=== PATIENT | male | born 1985 | race Caucasian/White ===

== ENCOUNTER 2019-06-11 18:07 | Emergency (ER) | payer SELFPAY ==
--- NOTE | 2019-06-11 18:45 | EDM.PDOC ---
ED HPI GENERAL MEDICAL PROBLEM - General Chief Complaint: Chest Pain Stated Complaint: CHEST PAIN Time Seen by Provider: 06/11/19 18:08 Source of Information: Reports: Patient History Limitations: Reports: No Limitations - History of Present Illness INITIAL COMMENTS - FREE TEXT/NARRATIVE: HISTORY AND PHYSICAL: History of present illness: Patient is a 33-year-old male presents to the ED today with concern of tingling in his hands and feet and chest discomfort 2 days. Patient states that he has had this chest discomfort off-and-on since he had an accident involving his ribs approximately 10 years ago. Patient states he got concerned because his mother has recently had a heart attack and is in her late 50s. Patient denies any health history or any other symptoms or concerns. Patient states he has not taken anything for her symptoms. Patient denies fever, chills, chest pain, shortness of breath, or cough. Denies headache, neck stiff ness, change in vision, syncope, or near syncope. Denies nausea, vomiting, abdominal pain, diarrhea, constipation, or dysuria. Has not noted any blood in urine or stool. Patient has been eating and drinking appropriately. Review of systems: As per history of present illness and below otherwise all systems reviewed and negative. Past medical history: As per history of present illness and as reviewed below otherwise noncontributory. Surgical history: As per history of present illness and as reviewed below otherwise noncontributory. Social history: See social history for further information Family history: As per history of present illness and as reviewed below otherwise noncontributory. Physical exam: General: Patient is alert, oriented, and in no acute distress. Patient sitting comfortably on exam table, mildly anxious appearing. HEENT: Atraumatic, normocephalic, pupils equal and reactive bilaterally, negative for conjunctival pallor or scleral icterus, mucous membranes moist, TMs normal bilaterally, throat clear, neck supple, nontender, trachea midline. No drooling or trismus noted. No meningeal signs. No hot potato voice noted. Lungs: Clear to auscultation, breath sounds equal bilaterally, chest nontender. Heart: S1S2, regular rate and rhythm without overt murmur Abdomen: Soft, nondistended, nontender. Negative for masses or hepatosplenomegaly. Negative for costovertebral tenderness. Pelvis: Stable nontender. Genitourinary: Deferred. Rectal: Deferred. Skin: Intact, warm, dry. No lesions or rashes noted. Extremities: Atraumatic, negative for cords or calf pain. Neurovascular unremarkable. Neuro: Awake, alert, oriented. Cranial nerves II through XII unremarkable. Cerebellum unremarkable. Motor and sensory unremarkable throughout. Exam nonfocal. Notes: EKG reviewed with Dr. Verdugo Patient expresses resolution of symptoms throughout stay in ED. Admission for observation was offered to patient but she declines at this time. All risks versus benefits discussed with patient and expresses understanding. Voices understanding and is agreeable to plan of care. Denies any further questions or concerns at this time. Diagnostics: CBC, CMP, UA, EKG, chest x-ray, troponin, lipase Therapeutics: Aspirin Prescription: None Impression: Chest pain Plan: 1. You can alternate ibuprofen and Tylenol as directed for pain and discomfort. 2. Follow-up with her primary care provider as discussed. Return to the ED as needed and as discussed. Definitive disposition and diagnosis as appropriate pending reevaluation and review of above. Chest Pain Score (Numeric/FACES): 8 - Related Data Allergies Allergy/AdvReac Type Severity Reaction Status Date / Time No Known Allergies Allergy Verified 06/11/19 18:10 Home Meds: Home Meds Pantoprazole Sodium [Protonix] 20 mg PO DAILY 07/15/16 [History] Past Medical History Gastrointestinal History: Reports: GERD - Infectious Disease History Infectious Disease History: Reports: Chicken Pox Social & Family History - Family History Family Medical History: Noncontributory - Tobacco Use Smoking Status *Q: Never Smoker Second Hand Smoke Exposure: No - Caffeine Use Caffeine Use: Reports: Coffee - Recreational Drug Use Recreational Drug Use: No ED ROS GENERAL - Review of Systems Review Of Systems: ROS reveals no pertinent complaints other than HPI. ED EXAM, GENERAL - Physical Exam Exam: See Below (See dictation) Course - Vital Signs Last Recorded V/S: Last Vital Signs Temp 36.4 C 06/11/19 18:11 Pulse 73 06/11/19 20:21 Resp 14 06/11/19 20:21 BP 133/96 H 06/11/19 20:21 Pulse Ox 98 06/11/19 20:21 - Orders/Labs/Meds Orders: Active Orders 24 hr Category Date Time Status EKG Documentation Completion [RC] STAT Care 09/04/19 18:09 Active UA RFX DOT AND CULT IF INDIC [URIN] Stat Lab 06/11/19 18:20 Ordered Labs: Laboratory Tests 06/11/19 06/11/19 06/11/19 Range/Units 18:20 18:20 18:20 WBC 11.34 H (4.0-11.0) K/uL RBC 5.16 (4.50-5.90) M/uL Hgb 16.5 (13.0-17.0) g/dL Hct 47.6 (38.0-50.0) % MCV 92.2 (80.0-98.0) fL MCH 32.0 (27.0-32.0) pg MCHC 34.7 (31.0-37.0) g/dL RDW Std Deviation 46.3 (28.0-62.0) fl RDW Coeff of Bridger 14 (11.0-15.0) % Plt Count 297 (150-400) K/uL MPV 9.60 (7.40-12.00) fL Neut % (Auto) 57.8 (48.0-80.0) % Lymph % (Auto) 27.9 (16.0-40.0) % Bates % (Auto) 9.9 (0.0-15.0) % Eos % (Auto) 3.5 (0.0-7.0) % Baso % (Auto) 0.9 (0.0-1.5) % Neut # (Auto) 6.6 H (1.4-5.7) K/uL Lymph # (Auto) 3.2 H (0.6-2.4) K/uL Bates # (Auto) 1.1 H (0.0-0.8) K/uL Eos # (Auto) 0.4 (0.0-0.7) K/uL Baso # (Auto) 0.1 (0.0-0.1) K/uL Nucleated RBC % 0.0 /100WBC Nucleated RBCs # 0 K/uL Sodium 140 (136-148) mmol/L Potassium 3.4 L (3.5-5.1) mmol/L Chloride 100 (98-107) mmol/L Carbon Dioxide 19.7 L (21.0-32.0) mmol/L BUN 8 (7.0-18.0) mg/dL Creatinine 0.9 (0.8-1.3) mg/dL Est Cr Clr Drug Dosing 129.33 mL/min Estimated GFR (MDRD) > 60.0 ml/min Glucose 88 (74-106) mg/dL Calcium 9.5 (8.5-10.1) mg/dL Total Bilirubin 1.3 H (0.2-1.0) mg/dL AST 20 (15-37) IU/L ALT 34 (14-63) IU/L Alkaline Phosphatase 113 (46-116) U/L Troponin I < 0.050 (0.000-0.056) ng/mL Total Protein 7.9 (6.4-8.2) g/dL Albumin 4.1 (3.4-5.0) g/dL Globulin 3.8 (2.6-4.0) g/dL Albumin/Globulin Ratio 1.1 (0.9-1.6) Lipase 91 (73-393) U/L Meds: Medications Discontinued Medications Generic Name Dose Route Start Last Admin Trade Name Tristan PRN Reason Stop Dose Admin Aspirin 324 mg 06/11/19 18:44 06/11/19 18:54 Aspirin PO 06/11/19 18:45 324 mg ONETIME ONE Administration Departure - Departure Time of Disposition: 20:27 Disposition: Home, Self-Care 01 Clinical Impression: Chest pain Qualifiers: Chest pain type: unspecified Qualified Code(s): R07.9 - Chest pain, unspecified - Discharge Information Referrals: PCP,Unknown [Primary Care Provider] - Forms: ED Department Discharge Additional Instructions: The following information is given to patients seen in the emergency department who are being discharged to home. This information is to outline your options for follow-up care. We provide all patients seen in our emergency department with a follow-up referral. The need for follow-up, as well as the timing and circumstances, are variable depending upon the specifics of your emergency department visit. If you don't have a primary care physician on staff, we will provide you with a referral. We always advise you to contact your personal physician following an emergency department visit to inform them of the circumstance of the visit and for follow-up with them and/or the need for any referrals to a consulting specialist. The emergency department will also refer you to a specialist when appropriate. This referral assures that you have the opportunity for follow-up care with a specialist. All of these measure are taken in an effort to provide you with optimal care, which includes your follow-up. Under all circumstances we always encourage you to contact your private physician who remains a resource for coordinating your care. When calling for follow-up care, please make the office aware that this follow-up is from your recent emergency room visit. If for any reason you are refused follow-up, please contact the [facility] at and asked to speak to the emergency department charge nurse. [facility] [address], [place] [address] [facility] [address] [place] [id number] 1. Take medication as prescribed. You can alternate ibuprofen and Tylenol as directed for pain and discomfort. 2. Follow-up with a primary care provider as discussed. Return to the ED as needed and as discussed. - My Orders Last 24 Hours: My Active Orders 06/11/19 18:09 EKG Documentation Completion [RC] STAT 06/11/19 18:20 UA RFX DOT AND CULT IF INDIC [URIN] Stat - Assessment/Plan Last 24 Hours: My Active Orders 06/11/19 18:09 EKG Documentation Completion [RC] STAT 06/11/19 18:20 UA RFX DOT AND CULT IF INDIC [URIN] Stat
[2019-06-11] MEDS: Aspirin 81 MG Tab.Chew PO ONE (18:54)
--- NOTE | 2019-06-11 19:09 | CR ---
INDICATION: Chest pain. TECHNIQUE: AP portable chest x-ray. FINDINGS: Heart size normal. Lungs clear. Chest otherwise negative without acute disease. Dictated by Diogenes Hart MD @ Jun 11 2019 7:06PM Signed by Dr. Diogenes Hart @ Jun 11 2019 7:07PM
[2019-06-11 20:13] LABS: BLOOD UREA NITROGEN,BUN 8 mg/dL (7.0-18.0); CARBON DIOXIDE,CO2 19.7 mmol/L (21.0-32.0); CHLORIDE,CL 100 mmol/L (98-107); GLUCOSE RANDOM 88 mg/dL (74-106); POTASSIUM,K 3.4 mmol/L (3.5-5.1); SODIUM,NA 140 mmol/L (136-148)
[2019-06-11 20:49] VITALS: BP 148/94
== END 2019-06-11 20:47 | disposition home or self-care (01) ==
LOC: MW.ED 18:07
DX: R07.9 Chest pain, unspecified (principal); K21.9 Gastro-esophageal reflux disease without esophagitis; Z79.899 Other long term (current) drug therapy
CPT/HCPCS: 36415; 71045; 80053; 83690; 84484; 85025; 93005; 99285; A9270

== ENCOUNTER 2020-11-12 07:02 | Day surgery (SDC) | payer BC ==
[~2020-11-12 07:02] MED LIST: Lactated Ringers 1,000 ML IV SCH; Midazolam 1 MG/ML 2 ML SDV ONE; Propofol 200 MG/20 ML SDV ONE
--- NOTE | 2020-11-12 07:34 | PCM.PREANE ---
Preanesthetic Assessment - Anesthesia/Transfusion/Family Hx Anesthesia History: Prior Anesthesia Without Reaction Transfusion History: No Prior Transfusion(s) - Review of Systems General: No Symptoms Pulmonary: No Symptoms Cardiovascular: No Symptoms Gastrointestinal: No Symptoms Neurological: No Symptoms Other: Reports: None - Physical Assessment NPO Status Date: 11/11/20 Vital Signs: Last Vital Signs Temp 98.1 F 11/12/20 07:16 Pulse 81 11/12/20 07:16 Resp 16 11/12/20 07:16 BP 127/68 11/12/20 07:16 Pulse Ox 96 11/12/20 07:16 Height: 5 ft 9 in Weight: 103.873 kg ASA Class: 2 Mental Status: Alert & Oriented x3 Airway Class: Mallampati = 2 Dentition: Reports: Normal Dentition ROM/Head Extension: Full Lungs: Clear to Auscultation, Normal Respiratory Effort Cardiovascular: Regular Rate, Regular Rhythm - Allergies Allergies/Adverse Reactions: Allergies Allergy/AdvReac Type Severity Reaction Status Date / Time bounce dryer sheets Allergy Hives Uncoded 11/12/20 07:20 - Blood Blood Available: No - Anesthesia Plan Pre-Op Medication Ordered: None - Acknowledgements Anesthesia Type Planned: General Anesthesia (tiva) Pt an Appropriate Candidate for the Planned Anesthesia: Yes Alternatives and Risks of Anesthesia Discussed w Pt/Guardian: Yes Pt/Guardian Understands and Agrees with Anesthesia Plan: Yes Additional Comments: pmh: periodic tachycardias, hr about 120, never worked up PLAN: tiva PreAnesthesia Questionnaire HEENT History: Reports: None Cardiovascular History: Reports: None Respiratory History: Reports: Asthma Other Respiratory History: asthma as a child Gastrointestinal History: Reports: GERD Genitourinary History: Reports: None Musculoskeletal History: Reports: Neck Pain, Chronic, Other (See Below) Other Musculoskeletal History: DDD Neurological History: Reports: None Psychiatric History: Reports: None Endocrine/Metabolic History: Reports: Obesity/BMI 30+ Hematologic History: Reports: None Immunologic History: Reports: None Oncologic (Cancer) History: Reports: None Dermatologic History: Reports: None - Infectious Disease History Infectious Disease History: Reports: Chicken Pox - Past Surgical History Head Surgeries/Procedures: Reports: None HEENT Surgical History: Reports: Tonsillectomy Other HEENT Surgeries/Procedures: middle ear surgery Cardiovascular Surgical History: Reports: None Respiratory Surgical History: Reports: None GI Surgical History: Reports: EGD Male Surgical History: Reports: None Endocrine Surgical History: Reports: None Neurological Surgical History: Reports: None Musculoskeletal Surgical History: Reports: None Oncologic Surgical History: Reports: None Dermatological Surgical History: Reports: None - SUBSTANCE USE Tobacco Use Status *Q: Former Tobacco User Tobacco Use Within Last Twelve Months: No - HOME MEDS Home Medications: Home Meds Pantoprazole Sodium [Protonix] 20 mg PO DAILY 07/15/16 [History] Baclofen 10 mg PO ASDIRECTED PRN 11/09/20 [History] - CURRENT (IN HOUSE) MEDS Current Meds: Current Medications Lactated Ringer's (Ringers, Lactated) 1,000 mls @ 125 mls/hr IV ASDIRECTED JIM Last Admin: 11/12/20 07:19 Dose: 125 mls/hr Documented by: Discontinued Medications Midazolam HCl (Versed 1 Mg/Ml) Confirm Administered Dose 2 mg .ROUTE .STK-MED ONE Stop: 11/12/20 07:00 Propofol (Diprivan 20 Ml) Confirm Administered Dose 600 mg .ROUTE .STK-MED ONE Stop: 11/12/20 07:00
--- NOTE | 2020-11-12 09:56 | PCM.OPNOTE ---
- General Post-Op/Procedure Note Date of Surgery/Procedure: 11/12/20 Operative Procedure(s): Colonoscopy Pre Op Diagnosis: Change in bowel habits. Family history of ulcerative colitis. Post-Op Diagnosis: No evidence of neoplasia. Anesthesia Technique: MAC (ASA I) Primary Surgeon: Tony Garces Program Management Intern: Kamari Bella Condition: Good Free Text/Narrative:: DICTATION 191676 CPT CODE 08232
[2020-11-12] MEDS ORDERED: Lactated Ringers 1,000 ML IV SCH (10:00)
[2020-11-12 10:17] VITALS: BP 112/68; PULSE 66
--- NOTE | 2020-11-12 11:15 | PCM.POSTAN ---
POST ANESTHESIA ASSESSMENT - MENTAL STATUS Mental Status: Alert, Oriented - VITAL SIGNS Vital Signs: Last Vital Signs Temp 97.2 F 11/12/20 10:05 Pulse 66 11/12/20 10:05 Resp 14 11/12/20 10:05 BP 112/68 11/12/20 10:05 Pulse Ox 97 11/12/20 10:05 - RESPIRATORY Respiratory Status: Respiratory Rate WNL, Airway Patent, O2 Saturation Stable - CARDIOVASCULAR CV Status: Pulse Rate WNL, Blood Pressure Stable - GASTROINTESTINAL GI Status: No Symptoms - POST OP HYDRATION Hydration Status: Adequate & Stable
--- NOTE | 2020-11-12 11:16 | PCM48HPAN ---
Post Anesthesia Note - EVALUATION WITHIN 48HRS OF ANESTHETIC Vital Signs in Normal Range: Yes Patient Participated in Evaluation: Yes Respiratory Function Stable: Yes Airway Patent: Yes Cardiovascular Function Stable: Yes Hydration Status Stable: Yes Pain Control Satisfactory: Yes Nausea and Vomiting Control Satisfactory: Yes Mental Status Recovered: Yes Vital Signs: Last Vital Signs Temp 97.2 F 11/12/20 10:05 Pulse 66 11/12/20 10:05 Resp 14 11/12/20 10:05 BP 112/68 11/12/20 10:05 Pulse Ox 97 11/12/20 10:05
--- NOTE | 2020-11-12 13:14 | OR ---
SURGEON: Tony Garces M.D. DATE OF PROCEDURE: 11/12/2020 OPERATION PERFORMED: Colonoscopy. PRIMARY SURGEON: Tony Garces M.D. ANESTHESIA: MAC. ASA CLASSIFICATION: II. 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 PREOPERATIVE DIAGNOSES: 1. Change in bowel habits. 2. Family history of ulcerative colitis. POSTOPERATIVE DIAGNOSIS: No evidence of neoplasia. DESCRIPTION OF PROCEDURE: The patient was taken to the endoscopy room and positioned on the endoscopy table in the left lateral decubitus position. Time-out was called for appropriate identification of the patient and procedure. Monitored anesthesia care was provided. The colonoscope was inserted into the rectum and advanced without difficulty to the cecum. The colonoscope was retroflexed to visualize the ascending colon from below, then straightened and slowly withdrawn. The cecum, ascending colon, hepatic flexure, transverse colon, splenic flexure, descending colon, sigmoid colon, and rectum were very well visualized. No tumors, polyps, or inflammatory bowel changes were noted anywhere throughout the colon. One small diverticulum was noted in the ascending colon. No other diverticular changes were noted. Once the colonoscope was withdrawn to the rectum, it was retroflexed to visualize the anal orifice from above. Again, no tumors or polyps were seen and there were no acute hemorrhoidal changes. The colonoscope was then straightened, the rectum aspirated, and the colonoscope removed. The patient tolerated the procedure well and was taken to recovery room in satisfactory condition. CINDY / DENYS /[id number]
== END 2020-11-12 10:20 | disposition home or self-care (01) ==
LOC: MW.SDS 07:02
PROVIDERS: ATTEND Surgery
DX: R19.4 Change in bowel habit (principal); G89.4 Chronic pain syndrome; E66.9 Obesity, unspecified; J45.909 Unspecified asthma, uncomplicated; Z79.899 Other long term (current) drug therapy; Z98.890 Other specified postprocedural states; Z87.891 Personal history of nicotine dependence; Z83.79 Family history of other diseases of the digestive system; Z80.0 Family history of malignant neoplasm of digestive organs; Z68.34 Body mass index [BMI] 34.0-34.9, adult
CPT/HCPCS: 45378; J2250; J2704; J7120; 00811

== ENCOUNTER 2021-03-14 11:33 | Emergency (ER) | payer BC ==
[2021-03-14] MEDS ORDERED: Lidocaine 1% 10 ML MDV INJECT ONE (11:42)
[2021-03-14] MEDS ORDERED: Diphtheria,Pertussis(Acell),Tetanus Vaccine 0.5 ML Syringe IM ONE (11:42)
[2021-03-14] MEDS ORDERED: ceFAZolin 1 GM in Premix Bag 1 BAG IV ONE (11:43)
[2021-03-14] MEDS ORDERED: Lactated Ringers 1,000 ML IV SCH (11:45)
--- NOTE | 2021-03-14 12:26 | CR ---
For Patients: As a result of the Cures Act, medical imaging exams and procedure reports are released immediately into your electronic medical record. You may view this report before your referring provider. If you have questions, please contact your health care provider. Indication: Injury and pain Technique: Left wrist 3 views Comparison: None Findings/Impression: Bones: Alignment is normal. No acute fractures or bone lesions. Well corticated free bone fragment off the ulnar styloid is likely the result of an old injury. Joint spaces: Unremarkable. Soft tissues: Superficial soft tissue injury adjacent to the distal ulna. No foreign body. Dictated by Solomon Curry MD @ 03/14/2021 12:24:[address] Solomon Curry @ Mar 14 2021 12:24PM
--- NOTE | 2021-03-14 13:03 | EDM.PDOC ---
ED HPI GENERAL MEDICAL PROBLEM - General Chief Complaint: Laceration Stated Complaint: INJURY LT HAND Time Seen by Provider: 03/14/21 11:49 - History of Present Illness INITIAL COMMENTS - FREE TEXT/NARRATIVE: HISTORY AND PHYSICAL: History of present illness: This is a 35-year-old healthy gentleman who presents ER today secondary to an accidental laceration of his nondominant left wrist. He reports that he was trying to push a trash bag that was hanging out of his truck back into his truck when a piece of glass that was in the trash bag lacerated his left wrist resulting in pulsatile bleeding. Patient reports that this occurred approximately 5 to 10 minutes prior to arrival. Patient reports that he placed a tourniquet on his left wrist utilizing a cell phone ammonia refrigeration technician wire and applied pressure. He reports that he had a moderate amount of bleeding that was all localized mainly on his jeans. Patient denies any nausea, vomiting, diarrhea, dysuria, frequency, urgency, chest pain, shortness of breath, dizziness, LOC, syncope. Patient reports that he has no loss of sensation to his hand or wrist. Patient reports he has no loss of function or strength to any of his fingers. Patient reports that he does have significant weakness and difficulty with flexion of his wrist. Review of systems: As per history of present illness and below otherwise all systems reviewed and negative. Past medical history: As per history of present illness and as reviewed below otherwise noncontributory. Surgical history: As per history of present illness and as reviewed below otherwise noncontributory. Social history: No reported history of drug abuse. Family history: As per history of present illness and as reviewed below otherwise noncontributory. Physical exam: This patient was seen and evaluated during the 2019 SARS-CoV-2 novel coronavirus pandemic period. Community viral transmission is ongoing at time of this encounter and the emergency department is operating under pandemic response procedures. Constitutional: Patient is oriented to person, place, and time. Appears well- developed and well-nourished. No distress. HEENT: Moist mucous membranes Head: Normocephalic and atraumatic Eyes: Right eye exhibits no discharge. Left eye exhibits no discharge. No scleral icterus Neck: Normal range of motion. No tracheal deviation present. Cardiovascular: Normal rate and regular rhythm. Pulmonary: Effort normal, no respiratory distress. Abdominal: No distention Musculoskeletal: Normal range of motion Neurologic: Alert and oriented to person, place and time. Skin: Hu[place], warm and dry. Psychiatric: Normal mood and affect. Behavior is normal. Judgment and thought content normal. Nursing note and vital signs have been reviewed Patient's ER physical exam is significant for a 3 cm laceration to the anterior aspect of his left wrist extending over the radial component. Muscle belly is identified. Patient is having active pulsatile bleeding. Nima test was performed which verified that he has ulnar artery collateral blood flow. I was able to visualize pulsatile arterial blood from the distal aspect of his radial artery when the proximal aspect was compressed. When the proximal aspect of the radial artery was compressed along with the ulnar artery, the pulsatile bleeding from the distal aspect of the radial artery stopped. Patient has good capillary refill of his fingers. Patient has decreased flexion of his wrist with significant mount of pain and discomfort despite anesthetizing with lidocaine. Diagnostics: Left wrist x-ray: No acute fracture dislocation or foreign body identified Therapeutics: Ancef 1 g IV Tdap 0.5 IM Motrin 600 mg p.o., Ultram 50 p.o. Assessment and plan: This is a 35-year-old gentleman who presented to the ER today secondary to laceration of his radial artery that was accidental in nature. Patient denies any suicidal ideation, history of depression, or intent to harm himself. Upon presentation to the ED, a tourniquet was applied for adequate evaluation and a dry field of his laceration. It appears that he does have an arterial injury to his radial artery as well as laceration of 1 of his wrist muscle belly. Patient's laceration was sutured and pressure dressing was applied. No active bleeding at this time is occurring and no expanding hematomas identified underneath the laceration site. Case was discussed with Dr. Mat Wallis at [facility] for possible transfer and evaluation. After discussion of the case, Dr. Wallis recommended that we place patient in a wrist splint, initiate antibiotic therapy, and have him follow-up with his office for definitive outpatient surgical treatment within the week. Given that there is no active bleeding at this time and patient has good ulnar artery blood flow, Dr. Wallis did not feel that emergent transfer to [facility] would be indicated for emergent treatment and that patient would be best served with elective procedure. I have discussed this with the patient and he is in agreement with the current plan. He reports that he does have a colonoscopy scheduled for and did not want to miss that so he is comfortable with the plan await and schedule as an outpatient. My DME note: A Velcro wrist splint will be ordered secondary to laceration of muscle belly of his left wrist. This will benefit patient by immobilizing the wrist to allow for appropriate healing of the muscle belly. Patient is to keep this on until he is evaluated by hand surgeon and [facility], Dr. Mat Wallis. Reassessment at the time of disposition demonstrates that the patient is in no acute distress. The patient has remained stable throughout the entire ED visit and is without objective evidence for acute process requiring urgent intervention or hospitalization. The patient is stable for discharge, counseling is provided as documented above, discussed symptomatic treatment and specific conditions for return. I have spoken with the patient/caregiver and discussed todays findings, in addition to providing specific details for the plan of care. Questions are answered and there is agreement with the plan. Definitive disposition and diagnosis as appropriate pending reevaluation and review of above. Left wrist Pain Score (Numeric/FACES): 8 - Related Data Allergies Allergy/AdvReac Type Severity Reaction Status Date / Time bounce dryer sheets Allergy Hives Uncoded 03/14/21 11:47 Home Meds: Home Meds Ibuprofen 600 mg PO Q6HR PRN #30 tablet 03/14/21 [Rx] cephALEXin [Keflex] 500 mg PO Q8H #30 cap 03/14/21 [Rx] traMADol [Ultram] 50 mg PO Q6H PRN #12 tab 03/14/21 [Rx] Past Medical History HEENT History: Reports: None Cardiovascular History: Reports: None Respiratory History: Reports: Asthma Other Respiratory History: asthma as a child Gastrointestinal History: Reports: GERD Genitourinary History: Reports: None Musculoskeletal History: Reports: Neck Pain, Chronic, Other (See Below) Other Musculoskeletal History: DDD Neurological History: Reports: None Psychiatric History: Reports: None Endocrine/Metabolic History: Reports: Obesity/BMI 30+ Hematologic History: Reports: None Immunologic History: Reports: None Oncologic (Cancer) History: Reports: None Dermatologic History: Reports: None - Infectious Disease History Infectious Disease History: Reports: C-Difficile, Chicken Pox - Past Surgical History Head Surgeries/Procedures: Reports: None HEENT Surgical History: Reports: Tonsillectomy Other HEENT Surgeries/Procedures: middle ear surgery Cardiovascular Surgical History: Reports: None Respiratory Surgical History: Reports: None GI Surgical History: Reports: EGD Male Surgical History: Reports: None Endocrine Surgical History: Reports: None Neurological Surgical History: Reports: None Musculoskeletal Surgical History: Reports: None Oncologic Surgical History: Reports: None Dermatological Surgical History: Reports: None Social & Family History - Family History Family Medical History: No Pertinent Family History - Tobacco Use Tobacco Use Status *Q: Never Tobacco User - Caffeine Use Caffeine Use: Reports: None - Recreational Drug Use Recreational Drug Use: No ED ROS GENERAL - Review of Systems Review Of Systems: See Below ED EXAM, SKIN/RASH Exam: See Below ED SKIN PROCEDURES - Laceration/Wound Repair Left Wrist Appearance: Muscle, Linear, Heavily Contaminated Distal NVT: Other (See body of note. Patient with arterial laceration of likely are radial artery as well as muscle belly) Local Anesthesia - Lidocaine (Xylocaine): 1% Plain Local Anesthetic Volume: 4cc Skin Prep: Chlorhexidine (Hibiciens), Providone-Iodine (Betadine), Saline Saline Irrigation (cc's): 500 Exploration/Debridement/Repair: Wound Explored, In a Bloodless Field, Explored to Base Closed with: Sutures Lac/Wound length In cm: 4 Suture Size: 4-0 # of Sutures: 7 Suture Type: Nylon Course - Vital Signs Last Recorded V/S: Last Vital Signs Temp 97.6 F 03/14/21 11:47 Pulse 75 03/14/21 11:47 Resp 16 03/14/21 11:47 BP 123/65 03/14/21 11:47 Pulse Ox 98 03/14/21 11:47 - Orders/Labs/Meds Orders: Active Orders 24 hr Category Date Time Status Vaccines to be Administered [RC] PER UNIT ROUTINE Care 03/14/21 11:42 Active Lactated Ringers [Ringers, Lactated] 1,000 ml Med 03/14/21 11:45 Active IV ASDIRECTED Medication Orders Lactated Ringer's (Ringers, Lactated) 1,000 mls @ 150 mls/hr IV ASDIRECTED JIM Last Admin: 03/14/21 12:52 Dose: 150 mls/hr Documented by: KEYANA Labs: Laboratory Tests 03/14/21 03/14/21 Range/Units 11:50 11:56 WBC 8.87 (4.0-11.0) K/uL RBC 4.45 L (4.50-5.90) M/uL Hgb 13.6 (13.0-17.0) g/dL Hct 40.2 (38.0-50.0) % MCV 90.3 (80.0-98.0) fL MCH 30.6 (27.0-32.0) pg MCHC 33.8 (31.0-37.0) g/dL RDW Std Deviation 43.5 (28.0-62.0) fl RDW Coeff of Bridger 13 (11.0-15.0) % Plt Count 294 (150-400) K/uL MPV 10.20 (7.40-12.00) fL Neut % (Auto) 59.3 (48.0-80.0) % Lymph % (Auto) 27.2 (16.0-40.0) % Kendall % (Auto) 7.3 (0.0-15.0) % Eos % (Auto) 5.3 (0.0-7.0) % Baso % (Auto) 0.9 (0.0-1.5) % Neut # (Auto) 5.3 (1.4-5.7) K/uL Lymph # (Auto) 2.4 (0.6-2.4) K/uL Kendall # (Auto) 0.7 (0.0-0.8) K/uL Eos # (Auto) 0.5 (0.0-0.7) K/uL Baso # (Auto) 0.1 (0.0-0.1) K/uL Nucleated RBC % 0.0 /100WBC Nucleated RBCs # 0 K/uL Blood Type O POSITIVE Antibody Screen NEGATIVE Meds: Medications Generic Name Dose Route Start Last Admin Trade Name Freq PRN Reason Stop Dose Admin Lactated Ringer's 1,000 mls @ 150 mls/hr 03/14/21 11:45 03/14/21 12:52 Ringers, Lactated IV 150 mls/hr ASDIRECTED JIM Administration Discontinued Medications Generic Name Dose Route Start Last Admin Trade Name Freq PRN Reason Stop Dose Admin Diphtheria/Tetanus/Acell Pertussis 0.5 ml 03/14/21 11:42 Diphtheria,Pertussis(Acell),Tetanus Vaccine 0.5 Ml Syringe IM 03/14/21 11:43 .ONCE ONE Cefazolin Sodium/Dextrose 1 gm 50 mls @ 100 mls/hr 03/14/21 11:43 / Premix IV 03/14/21 12:12 ONETIME ONE Lidocaine HCl 10 ml 03/14/21 11:42 Lidocaine 1% 10 Ml Mdv INJECT 03/14/21 11:43 ONETIME ONE Lidocaine HCl Confirm 03/14/21 11:42 03/14/21 12:27 Lidocaine 1% 5 Ml Sdv Administered 03/14/21 11:43 Not Given Dose 10 ml .ROUTE .STK-MED ONE Departure - Departure Time of Disposition: 13:05 Disposition: Home, Self-Care 01 Condition: Good Clinical Impression: Laceration of left radial artery, Laceration of unspecified muscle, fascia and tendon at wrist and hand level, left hand, initial encounter - Discharge Information Instructions: Laceration Care, Adult Referrals: Ildefonso Haas MD [Primary Care Provider] - Additional Instructions: You have been seen and evaluated in the ER today secondary to an injury to your left wrist from glass. The x-ray did not reveal any foreign body. Evaluation of your injury reveals that you have a laceration of your left radial artery. You also have a laceration of muscle and tendon in your left wrist as well. Your wound has been sutured here in the ED but will need definitive management by hand specialist. We have discussed your case in detail with Dr. Mat Wallis and he would like you to call his office at [phone] for an appointment for surgical repair of your tendon and ligament. You will be placed in a Velcro splint to assist with pain and healing of the injury. Please make sure you let his office know the you were seen here in the emergency department in [place] and that the case was discussed with him directly for consultation and that he wants to see you in the office this week or early next week. You will be given a prescription for ibuprofen and Ultram to help with your pain. Please keep your splint on until you are seen by Dr. Wallis. Please return to the ER if you have any increased pain, swelling, tingling, numbness, blue discoloration to your hand or any new or concerning symptoms. The following information is given to patients seen in the emergency department who are being discharged to home. This information is to outline your options for follow-up care. We provide all patients seen in our emergency department with a follow-up referral. The need for follow-up, as well as the timing and circumstances, are variable depending upon the specifics of your emergency department visit. If you don't have a primary care physician on staff, we will provide you with a referral. We always advise you to contact your personal physician following an emergency department visit to inform them of the circumstance of the visit and for follow-up with them and/or the need for any referrals to a consulting specialist. The emergency department will also refer you to a specialist when appropriate. This referral assures that you have the opportunity for follow-up care with a specialist. All of these measure are taken in an effort to provide you with optimal care, which includes your follow-up. Under all circumstances we always encourage you to contact your private physician who remains a resource for coordinating your care. When calling for follow-up care, please make the office aware that this follow-up is from your recent emergency room visit. If for any reason you are refused follow-up, please contact the [facility] Emergency Department at and asked to speak to the emergency department charge nurse. [facility] - Primary Care [address] [place] [id number] [id number] Sepsis Event Note (ED) - Evaluation Sepsis Screening Result: No Definite Risk - Focused Exam Vital Signs: Vital Signs Temp Pulse Resp BP Pulse Ox 03/14/21 11:47 97.6 F 75 16 123/65 98
[2021-03-14 13:28] VITALS: BP 124/74; PULSE 66
== END 2021-03-14 13:45 | disposition home or self-care (01) ==
LOC: MW.ED 11:33
DX: S55.112A Laceration of radial artery at forearm level, left arm, initial encounter (principal); S66.922A Laceration of unspecified muscle, fascia and tendon at wrist and hand level, left hand, initial encounter; J45.909 Unspecified asthma, uncomplicated; E66.9 Obesity, unspecified; Z68.23 Body mass index [BMI] 23.0-23.9, adult; Z23 Encounter for immunization; W25.XXXA Contact with sharp glass, initial encounter
CPT/HCPCS: 12002; 36415; 73100; 85025; 86850; 86900; 86901; 90471; 90715; 96365; 99283; J0690; J7120; 12032

== ENCOUNTER 2021-05-26 12:28 | Emergency (ER) | payer BC ==
--- NOTE | 2021-05-26 15:48 | EDM.PDOC ---
ED HPI GENERAL MEDICAL PROBLEM - General Chief Complaint: Abdominal Pain Stated Complaint: GALLBLADDER PROBLEMS Time Seen by Provider: 05/26/21 15:05 Source of Information: Reports: Patient History Limitations: Reports: No Limitations - History of Present Illness INITIAL COMMENTS - FREE TEXT/NARRATIVE: HISTORY AND PHYSICAL: History of present illness: Patient is a 35-year-old male who presents to the emergency room with complaints of right upper quadrant pain. He states he has a longstanding history of right upper quadrant pain which he assumes is his gallbladder. Pain will radiate into his right mid back after eating, associated with nausea. He has eliminated high-fat foods which has helped. He states he is currently pain-free and is working towards following up with a general surgeon to have his gallbladder assessed. Patient denies any fever, chills, headache, change in vision, syncope or near syncope. Denies any chest pain, back pain, shortness of breath or cough. Denies any vomiting, diarrhea, constipation or dysuria. Has not noted any blood in urine or stool. Patient has been eating and drinking appropriately. Review of systems: As per history of present illness and below otherwise all systems reviewed and negative. Past medical history: As per history of present illness and as reviewed below otherwise noncontributory. Surgical history: As per history of present illness and as reviewed below otherwise noncontributory. Social history: See social history for further information Family history: As per history of present illness and as reviewed below otherwise noncontributory. Physical exam: General: Well developed and well nourished. Alert and orientated x 3. Nontoxic in appearance and in no acute distress. Vital signs are stable and have been reviewed by me. Nursing notes were reviewed. HEENT: Atraumatic, normocephalic, pupils equal and reactive bilaterally, negative for conjunctival pallor or scleral icterus, mucous membranes moist, TMs normal bilaterally, throat clear, neck supple, nontender, trachea midline. No drooling or trismus noted. No meningeal signs. No hot potato voice noted. Lungs: Clear to auscultation bilaterally. No wheezes, rales, or rhonchi. Chest nontender. Normal work of breathing, no accessory muscles used. Heart: S1S2, regular rate and rhythm without overt murmur, gallops, or rubs. No JVD. No peripheral edema Abdomen: Soft, nondistended, right upper quadrant tenderness to palpation. Normoactive bowel sounds. Negative for masses or costovertebral tenderness. Skin: Intact, warm, dry. No lesions or rashes noted. Hematologic: No petechiae or purpra. Mucosa appropriate color and normal nail bed color and refill. Extremities: Atraumatic, moves all extremities per self without difficulty or deficits, negative for cords or calf pain. Neurovascular unremarkable. Neuro: Awake, alert, oriented. Cranial nerves II through XII unremarkable. Cerebellum unremarkable. Motor and sensory unremarkable throughout. Exam nonfocal. Psychiatric: Mood and affect are appropriate. Normal thought process. Answering questions appropriately. Notes: *This patient was seen and evaluated during the 2019 SARS-CoV-2 novel coronavirus pandemic period. Community viral transmission is ongoing at time of this encounter and the emergency department is operating under pandemic response procedures. Patient is a 35-year-old male who presents to the emergency room with complaints of right upper quadrant pain. Patient believes that his gallbladder. He does have mild tenderness to palpation although is 0/10 without touch. He declines wanting any medications for discomfort at this time. Lab work is unremarkable. Ultrasound is negative right upper quadrant ultrasound. VSS. I have talked with the patient about today's findings, in addition to providing specific details for plan of care. Reassessment at the time of disposition demonstrates that the patient is in no acute distress. The patient is stable for discharge, counseling was provided and we discussed in great detail signs and symptoms that would prompt them to return to the Emergency Department. Medication, follow up and supportive care measures were reviewed and discussed. Voices understanding and is agreeable to plan of care. Denies any further questions or concerns at this time. Diagnostics: CBC, CMP, lipase Therapeutics: None Prescription: Ultram Impression: Abdominal Pain Plan: 1. You were evaluated today on an emergent basis. Your lab work is normal. Ultrasound is unremarkable. 2. You can alternate Tylenol and ibuprofen as needed for pain and fever management. Ultram (Tramadol) for moderate to severe pain. This medication may cause drowsiness so do not take it while driving or needing to be functioning outside of the house. 3. We encourage you to follow up with your primary care provider and/or general surgeon in the next few days for re-evaluation and further care/management. 4. If your symptoms should worsen, new symptoms develop or any of the signs and symptoms we discussed should arise please return to the emergency room or call 911 (if needed). Definitive disposition and diagnosis as appropriate pending reevaluation and review of above. Right Upper Abdomen Pain Score (Numeric/FACES): 3 - Related Data Allergies Allergy/AdvReac Type Severity Reaction Status Date / Time bounce dryer sheets Allergy Hives Uncoded 03/14/21 11:47 Home Meds: Home Meds Ibuprofen 600 mg PO Q6HR PRN #30 tablet 03/14/21 [Rx] cephALEXin [Keflex] 500 mg PO Q8H #30 cap 03/14/21 [Rx] traMADol [Ultram] 50 mg PO Q6H PRN #12 tab 03/14/21 [Rx] Past Medical History HEENT History: Reports: None Cardiovascular History: Reports: None Respiratory History: Reports: Asthma Other Respiratory History: asthma as a child Gastrointestinal History: Reports: GERD Genitourinary History: Reports: None Musculoskeletal History: Reports: Neck Pain, Chronic, Other (See Below) Other Musculoskeletal History: DDD Neurological History: Reports: None Psychiatric History: Reports: None Endocrine/Metabolic History: Reports: Obesity/BMI 30+ Hematologic History: Reports: None Immunologic History: Reports: None Oncologic (Cancer) History: Reports: None Dermatologic History: Reports: None - Infectious Disease History Infectious Disease History: Reports: C-Difficile, Chicken Pox - Past Surgical History Head Surgeries/Procedures: Reports: None HEENT Surgical History: Reports: Tonsillectomy Other HEENT Surgeries/Procedures: middle ear surgery Cardiovascular Surgical History: Reports: None Respiratory Surgical History: Reports: None GI Surgical History: Reports: EGD Male Surgical History: Reports: None Endocrine Surgical History: Reports: None Neurological Surgical History: Reports: None Musculoskeletal Surgical History: Reports: None Oncologic Surgical History: Reports: None Dermatological Surgical History: Reports: None Social & Family History - Family History Family Medical History: No Pertinent Family History - Tobacco Use Tobacco Use Status *Q: Never Tobacco User - Caffeine Use Caffeine Use: Reports: None - Recreational Drug Use Recreational Drug Use: No ED ROS GENERAL - Review of Systems Review Of Systems: Comprehensive ROS is negative, except as noted in HPI. ED EXAM, GI/ABD - Physical Exam Exam: See Below (See dictation) Course - Vital Signs Last Recorded V/S: Last Vital Signs Temp 96.3 F L 05/26/21 14:34 Pulse 57 L 05/26/21 14:34 Resp 18 05/26/21 14:34 BP 143/96 H 05/26/21 14:34 Pulse Ox 100 05/26/21 14:34 - Orders/Labs/Meds Orders: Active Orders 24 hr Category Date Time Status UA RFX DOT AND CULT IF INDIC [URIN] Stat Lab 05/26/21 12:33 Ordered Labs: Laboratory Tests 05/26/21 05/26/21 Range/Units 15:43 15:43 WBC 7.50 (4.0-11.0) K/uL RBC 4.32 L (4.50-5.90) M/uL Hgb 13.0 (13.0-17.0) g/dL Hct 37.8 L (38.0-50.0) % MCV 87.5 (80.0-98.0) fL MCH 30.1 (27.0-32.0) pg MCHC 34.4 (31.0-37.0) g/dL RDW Std Deviation 41.9 (28.0-62.0) fl RDW Coeff of Bridger 13 (11.0-15.0) % Plt Count 241 (150-400) K/uL MPV 9.60 (7.40-12.00) fL Neut % (Auto) 57.0 (48.0-80.0) % Lymph % (Auto) 33.2 (16.0-40.0) % [place] % (Auto) 6.4 (0.0-15.0) % Eos % (Auto) 2.1 (0.0-7.0) % Baso % (Auto) 1.3 (0.0-1.5) % Neut # (Auto) 4.3 (1.4-5.7) K/uL Lymph # (Auto) 2.5 H (0.6-2.4) K/uL [place] # (Auto) 0.5 (0.0-0.8) K/uL Eos # (Auto) 0.2 (0.0-0.7) K/uL Baso # (Auto) 0.1 (0.0-0.1) K/uL Nucleated RBC % 0.0 /100WBC Nucleated RBCs # 0 K/uL Sodium 140 (136-148) mmol/L Potassium 3.8 (3.5-5.1) mmol/L Chloride 103 (98-107) mmol/L Carbon Dioxide 28.2 (21.0-32.0) mmol/L BUN 10 (7.0-18.0) mg/dL Creatinine 0.8 (0.8-1.3) mg/dL Est Cr Clr Drug Dosing 134.34 mL/min Estimated GFR (MDRD) > 60.0 ml/min Glucose 80 (74-106) mg/dL Calcium 8.5 (8.5-10.1) mg/dL Total Bilirubin 0.6 (0.2-1.0) mg/dL AST 12 L (15-37) IU/L ALT 22 (14-63) IU/L Alkaline Phosphatase 71 (46-116) U/L Total Protein 7.3 (6.4-8.2) g/dL Albumin 4.3 (3.4-5.0) g/dL Globulin 3.0 (2.6-4.0) g/dL Albumin/Globulin Ratio 1.4 (0.9-1.6) Lipase 75 (73-393) U/L Departure - Departure Time of Disposition: 17:26 Disposition: Home, Self-Care 01 Clinical Impression: Abdominal pain Qualifiers: Abdominal location: generalized Qualified Code(s): R10.84 - Generalized abdominal pain - Discharge Information Instructions: Abdominal Pain, Adult, [id number] Referrals: Ildefonso Haas MD [Primary Care Provider] - Forms: ED Department Discharge Additional Instructions: The following information is given to patients seen in the emergency department who are being discharged to home. This information is to outline your options for follow-up care. We provide all patients seen in our emergency department with a follow-up referral. The need for follow-up, as well as the timing and circumstances, are variable depending upon the specifics of your emergency department visit. If you don't have a primary care physician on staff, we will provide you with a referral. We always advise you to contact your personal physician following an emergency department visit to inform them of the circumstance of the visit and for follow-up with them and/or the need for any referrals to a consulting specialist. The emergency department will also refer you to a specialist when appropriate. This referral assures that you have the opportunity for follow-up care with a specialist. All of these measure are taken in an effort to provide you with optimal care, which includes your follow-up. Under all circumstances we always encourage you to contact your private physician who remains a resource for coordinating your care. When calling for follow-up care, please make the office aware that this follow-up is from your recent emergency room visit. If for any reason you are refused follow-up, please contact the [facility] Emergency Department at and asked to speak to the emergency department charge nurse. [facility] [address] [place] [id number] [facility] [address] [place] [id number] Thank you for choosing the [facility] emergency department in [place] for your medical needs today. It was a pleasure caring for you. Today you were seen in the emergency department for abdominal pain. 1. You were evaluated today on an emergent basis. Your lab work is normal. Ultrasound is unremarkable. 2. You can alternate Tylenol and ibuprofen as needed for pain and fever ma nagement. Ultram (Tramadol) for moderate to severe pain. This medication may cause drowsiness so do not take it while driving or needing to be functioning outside of the house. 3. We encourage you to follow up with your primary care provider and/or general surgeon in the next few days for re-evaluation and further care/management. 4. If your symptoms should worsen, new symptoms develop or any of the signs and symptoms we discussed should arise please return to the emergency room or call 911 (if needed). Sepsis Event Note (ED) - Focused Exam Vital Signs: Vital Signs Temp Pulse Resp BP Pulse Ox 05/26/21 14:34 96.3 F L 57 L 18 143/96 H 100 - My Orders Last 24 Hours: My Active Orders 05/26/21 12:33 UA RFX DOT AND CULT IF INDIC [URIN] Stat - Assessment/Plan Last 24 Hours: My Active Orders 05/26/21 12:33 UA RFX DOT AND CULT IF INDIC [URIN] Stat
[2021-05-26 16:21] LABS: BLOOD UREA NITROGEN,BUN 10 mg/dL (7.0-18.0); CARBON DIOXIDE,CO2 28.2 mmol/L (21.0-32.0); CHLORIDE,CL 103 mmol/L (98-107); GLUCOSE RANDOM 80 mg/dL (74-106); LIPASE 75 U/L (73-393); POTASSIUM,K 3.8 mmol/L (3.5-5.1); SODIUM,NA 140 mmol/L (136-148)
--- NOTE | 2021-05-26 17:25 | US ---
INDICATION: Right upper quadrant pain. TECHNIQUE: Conventional two-dimensional grayscale ultrasound of the right upper quadrant. COMPARISON: None. FINDINGS: The gallbladder is normal, with no evidence of stones. No gallbladder wall thickening or pericholecystic fluid is demonstrated. The patient is reportedly not tender over the gallbladder. No biliary ductal dilation is evident. The common bile duct measures 4 mm. The liver is normal in size, shape and echogenicity. The pancreas is within normal limits. The right kidney is unremarkable. The visualized portion of the abdominal aorta and inferior vena cava are negative. IMPRESSION: Negative right upper quadrant ultrasound. Dictated by Erick Ramirez MD @ 05/26/2021 5:22:[address] Erick Ramirez @ May 26 2021 5:22PM
[2021-05-26 17:49] VITALS: BP 124/83; PULSE 97
== END 2021-05-26 17:40 | disposition home or self-care (01) ==
LOC: MW.ED 12:28
DX: R10.11 Right upper quadrant pain (principal); R10.811 Right upper quadrant abdominal tenderness; E66.9 Obesity, unspecified; Z68.25 Body mass index [BMI] 25.0-25.9, adult
CPT/HCPCS: 36415; 76705; 76705-26; 80053; 83690; 85025; 99284-25

== ENCOUNTER 2021-07-06 07:17 | Day surgery (SDC) | payer BC ==
[2021-07-06] MEDS ORDERED: Propofol 200 MG/20 ML SDV ONE (07:19)
[2021-07-06] MEDS ORDERED: Midazolam 1 MG/ML 2 ML SDV ONE (07:19)
[2021-07-06] MEDS ORDERED: fentaNYL 100 MCG/2 ML SDV ONE ×2 (07:19→09:45)
[2021-07-06] MEDS ORDERED: Rocuronium Bromide 50 MG/5 ML Syringe ONE (07:19)
[2021-07-06] MEDS ORDERED: Lidocaine 2% 5 ML SDV ONE (07:19)
[2021-07-06] MEDS ORDERED: Dexamethasone 4 MG/ML 5 ML MDV ONE (07:20)
[2021-07-06] MEDS ORDERED: Ondansetron 4 MG/2 ML SDV ONE (07:22)
[2021-07-06] MEDS ORDERED: Octyl 2-Cyanoacrylate 1 Tube ONE (07:28)
[2021-07-06] MEDS ORDERED: Bupivacaine 25%/EPINEPHrine/PF 30 ML ONE (07:29)
[2021-07-06] MEDS ORDERED: Morphine 2 MG/ML SYRINGE IVPUSH PRN (07:30)
[2021-07-06] MEDS ORDERED: HYDROmorphone 1 MG/ML Syringe IVPUSH PRN (07:30)
[2021-07-06] MEDS ORDERED: Metoclopramide 10 MG/2 ML SDV IVPUSH PRN (07:30)
[2021-07-06] MEDS ORDERED: fentaNYL 100 MCG/2 ML SDV IVPUSH PRN (07:30)
[2021-07-06] MEDS ORDERED: Albuterol 0.083% 2.5 MG/3 ML Neb Soln NEB PRN (07:30)
[2021-07-06] MEDS ORDERED: Naloxone 0.4 MG/ML SDV IVPUSH PRN (07:30)
[2021-07-06] MEDS ORDERED: Ondansetron 4 MG/2 ML SDV IVPUSH PRN (07:30)
--- NOTE | 2021-07-06 07:40 | PCM.PREANE ---
Preanesthetic Assessment - Procedure Proposed Procedure: Lap Anastasiia - Anesthesia/Transfusion/Family Hx Anesthesia History: Prior Anesthesia Without Reaction Family History of Anesthesia Reaction: No Transfusion History: No Prior Transfusion(s) - Review of Systems General: No Symptoms Pulmonary: No Symptoms (Quit smoking x 10yrs, has chronic sinusitis with drainage- uses albuterol "to help clear drainage") Cardiovascular: No Symptoms Gastrointestinal: No Symptoms (GERD- well controlled) Neurological: No Symptoms Other: Reports: None - Physical Assessment NPO Status Date: 07/04/21 NPO Status Time: 19:00 Height: 5 ft 10 in Weight: 72.575 kg ASA Class: 2 Mental Status: Alert & Oriented x3 Airway Class: Mallampati = 2 Dentition: Reports: Normal Dentition Thyro-Mental Finger Breadths: 3 Mouth Opening Finger Breadths: 3 - Allergies Allergies/Adverse Reactions: Allergies Allergy/AdvReac Type Severity Reaction Status Date / Time bounce dryer sheets Allergy Hives Uncoded 06/30/21 10:44 - Acknowledgements Anesthesia Type Planned: General Anesthesia Pt an Appropriate Candidate for the Planned Anesthesia: Yes Alternatives and Risks of Anesthesia Discussed w Pt/Guardian: Yes Pt/Guardian Understands and Agrees with Anesthesia Plan: Yes PreAnesthesia Questionnaire HEENT History: Reports: Allergic Rhinitis, Other (See Below) Other HEENT History: chronic sinus congestion Cardiovascular History: Reports: None Respiratory History: Reports: Asthma, Other (See Below) Other Respiratory History: asthma as a child, has prescribed inhaler for cough due to sinus congestion, Gastrointestinal History: Reports: GERD Other Gastrointestinal History: intermittent RUQ pain Genitourinary History: Reports: None Musculoskeletal History: Reports: Back Pain, Chronic, Neck Pain, Chronic, Other (See Below) Other Musculoskeletal History: DDD Neurological History: Reports: None Psychiatric History: Reports: None Endocrine/Metabolic History: Reports: None Hematologic History: Reports: None Immunologic History: Reports: None Oncologic (Cancer) History: Reports: None Dermatologic History: Reports: None - Infectious Disease History Infectious Disease History: Reports: C-Difficile, Chicken Pox - Past Surgical History Head Surgeries/Procedures: Reports: None HEENT Surgical History: Reports: Tonsillectomy Other HEENT Surgeries/Procedures: middle ear surgery Cardiovascular Surgical History: Reports: None Respiratory Surgical History: Reports: None GI Surgical History: Reports: EGD Male Surgical History: Reports: None Endocrine Surgical History: Reports: None Neurological Surgical History: Reports: None Musculoskeletal Surgical History: Reports: None Oncologic Surgical History: Reports: None Dermatological Surgical History: Reports: None - SUBSTANCE USE Tobacco Use Status *Q: Former Tobacco User Tobacco Use Within Last Twelve Months: No - HOME MEDS Home Medications: Home Meds Albuterol Sulfate [Albuterol Sulfate HFA] 2 puff INH ASDIRECTED PRN 06/30/21 [History] Baclofen 10 mg PO TID PRN 06/30/21 [History] Pantoprazole Sodium [Protonix] 40 mg PO DAILY 06/30/21 [History] - CURRENT (IN HOUSE) MEDS Current Meds: Current Medications Albuterol (Albuterol 0.083% 2.5 Mg/3 Ml Neb Soln) 2.5 mg NEB ONETIME PRN PRN Reason: Wheezing Droperidol (Droperidol 5 Mg/2 Ml Sdv) 0.625 mg IVPUSH ONETIME PRN PRN Reason: Nausea/Vomiting Fentanyl (Fentanyl 100 Mcg/2 Ml Sdv) 50 mcg IVPUSH Q5M PRN PRN Reason: Pain (mild 1-3) Hydromorphone HCl (Hydromorphone 1 Mg/Ml Syringe) 1 mg IVPUSH Q10M PRN PRN Reason: Pain (moderate 4-6) Cefoxitin Sodium 2 gm/ Premix 50 mls @ 100 mls/hr IV ONETIME ONE Stop: 07/06/21 11:14 Acetaminophen 1,000 mg/ Premix 100 mls @ 400 mls/hr IV ONCALL ONE Stop: 07/06/21 10:59 Lactated Ringer's (Ringers, Lactated) 1,000 mls @ 125 mls/hr IV ASDIRECTED JIM Metoclopramide HCl (Metoclopramide 10 Mg/2 Ml Sdv) 10 mg IVPUSH ONETIME PRN PRN Reason: Nausea/Vomiting Morphine Sulfate (Morphine 2 Mg/Ml Syringe) 2 mg IVPUSH Q10M PRN PRN Reason: Pain (severe 7-10) Naloxone HCl (Naloxone 0.4 Mg/Ml Sdv) 0.1 mg IVPUSH ASDIRECTED PRN PRN Reason: Respiratory Depression Ondansetron HCl (Ondansetron 4 Mg/2 Ml Sdv) 4 mg IVPUSH ONETIME PRN PRN Reason: Nausea/Vomiting Pregabalin (Pregabalin 75 Mg Cap) 150 mg PO ONETIME ONE Stop: 07/06/21 10:46 Discontinued Medications Dexamethasone (Dexamethasone 4 Mg/Ml 5 Ml Mdv) Confirm Administered Dose 20 mg .ROUTE .STK-MED ONE Stop: 07/06/21 07:21 Fentanyl (Fentanyl 100 Mcg/2 Ml Sdv) Confirm Administered Dose 100 mcg .ROUTE .STK-MED ONE Stop: 07/06/21 07:20 Bupivacaine HCl/Epinephrine Bitart (Sensorc Mpf 0.25%-Epi 1:[id number]) Confirm Administered Dose 30 mls @ as directed .ROUTE .STK-MED ONE Stop: 07/06/21 07:30 Lidocaine (Lidocaine 2% 5 Ml Sdv) Confirm Administered Dose 5 ml .ROUTE .STK-MED ONE Stop: 07/06/21 07:20 Midazolam HCl (Midazolam 1 Mg/Ml 2 Ml Sdv) Confirm Administered Dose 2 mg .ROUTE .STK-MED ONE Stop: 07/06/21 07:20 Octyl Cyanoacrylate (Octyl 2-Cyanoacrylate 1 Tube) Confirm Administered Dose 1 applic .ROUTE .STK-MED ONE Stop: 07/06/21 07:29 Ondansetron HCl (Ondansetron 4 Mg/2 Ml Sdv) Confirm Administered Dose 4 mg .ROUTE .STK-MED ONE Stop: 07/06/21 07:23 Propofol (Propofol 200 Mg/20 Ml Sdv) Confirm Administered Dose 200 mg .ROUTE .STK-MED ONE Stop: 07/06/21 07:20 Rocuronium Hemlock (Rocuronium Hemlock 50 Mg/5 Ml Syringe) Confirm Administered Dose 50 mg .ROUTE .STK-MED ONE Stop: 07/06/21 07:20
[2021-07-06] MEDS ORDERED: Scopolamine 1.5 MG Transdermal Patch TRDERM PRN (08:13)
[2021-07-06] MEDS ORDERED: Scopolamine 1.5 MG Transdermal Patch ONE (08:20)
[2021-07-06] MEDS ORDERED: Lactated Ringers 1,000 ML IV SCH ×2 (08:30→10:45)
[2021-07-06] MEDS ORDERED: Pregabalin 75 MG Cap PO ONE ×2 (08:30→10:45)
[2021-07-06] MEDS ORDERED: cefOXitin 2 GM in Premix Bag 1 BAG IV ONE ×2 (08:30→10:45)
[2021-07-06] MEDS ORDERED: Acetaminophen 1,000 MG in Premix Bag 1 BAG IV ONE ×2 (08:30→10:45)
[2021-07-06] MEDS ORDERED: cefOXitin 1 GM Vial ONE (09:23)
[2021-07-06] MEDS ORDERED: Dexmedetomidine 200 MCG/2 ML SDV ONE (09:23)
[2021-07-06] MEDS ORDERED: Ketorolac 30 MG/ML SDV ONE (09:47)
[2021-07-06] MEDS ORDERED: Sugammadex Sodium 200 MG/2 ML VIAL ONE (09:47)
--- NOTE | 2021-07-06 10:29 | PCM.OPNOTE ---
- General Post-Op/Procedure Note Date of Surgery/Procedure: 07/06/21 Operative Procedure(s): laparoscopic cholecystectomy Findings: Slight adhesions around the gallbladder. dictation number [id number] Pre Op Diagnosis: abdmormal biliary HIDA Scan Post-Op Diagnosis: abnormal biliary HIDA scan Primary Surgeon: Raymon Gagnon Pathology: gallbladder EBL in mLs: 5 Complications: None Condition: Good
--- NOTE | 2021-07-06 10:51 | PCM.POSTAN ---
POST ANESTHESIA ASSESSMENT - MENTAL STATUS Mental Status: Somnolent - VITAL SIGNS Vital Signs: Last Vital Signs Temp 98.2 F 07/06/21 10:30 Pulse 65 07/06/21 10:45 Resp 17 07/06/21 10:45 BP 96/49 L 07/06/21 10:45 Pulse Ox 99 07/06/21 10:45 - RESPIRATORY Respiratory Status: Respiratory Rate WNL, Airway Patent, O2 Saturation Stable - CARDIOVASCULAR CV Status: Pulse Rate WNL, Blood Pressure Stable - GASTROINTESTINAL GI Status: No Symptoms - PAIN Free Text/Narrative:: Resting comfortably - POST OP HYDRATION Hydration Status: Adequate & Stable
--- NOTE | 2021-07-06 10:54 | PCM48HPAN ---
Post Anesthesia Note - EVALUATION WITHIN 48HRS OF ANESTHETIC Vital Signs in Normal Range: Yes Patient Participated in Evaluation: Yes Respiratory Function Stable: Yes Airway Patent: Yes Cardiovascular Function Stable: Yes Hydration Status Stable: Yes Pain Control Satisfactory: Yes Nausea and Vomiting Control Satisfactory: Yes Mental Status Recovered: Yes Vital Signs: Last Vital Signs Temp 98.2 F 07/06/21 10:30 Pulse 71 07/06/21 10:50 Resp 11 L 07/06/21 10:50 BP 101/49 L 07/06/21 10:50 Pulse Ox 96 07/06/21 10:50 - COMMENTS/OBSERVATIONS Free Text/Narrative:: Pt doing well post-op. VSS. No apparent anesthetic complications. Dr. Faheem Chavez
[2021-07-06 12:42] VITALS: BP 97/54; PULSE 64
--- NOTE | 2021-07-07 10:18 | OR ---
SURGEON: MARLYN TIDWELL MD DATE OF PROCEDURE: 07/06/2021 PREOPERATIVE DIAGNOSIS: Abnormal biliary HIDA scan. POSTOPERATIVE DIAGNOSIS: Abnormal biliary HIDA scan. PROCEDURE PERFORMED: Laparoscopic cholecystectomy. PRIMARY SURGEON: Marlyn Tidwell MD ANESTHESIA: General. ESTIMATED BLOOD LOSS: 5 mL. SPECIMEN: Gallbladder. REASON FOR PROCEDURE: Patient is a pleasant 35-year-old gentleman who has been having issues with right upper quadrant pain that radiates to the back. He says it seems to be eating food, although it does not really seem to matter what type of food. Attack lasts for an hour or so. Nothing seems to make it better. This was going on for past 10 years, but seems to be worse over the past year. The patient did have a CT scan ultrasound which was normal. He did have a HIDA scan, had delayed filling of the gallbladder, interpreted as possible chronic cholecystitis. I did go over with the patient risks, goals, and alternatives of procedure. Risks included, but were not limited to bleeding, infection, bile leak, abscess formation, injury to nearby structures such as common bile duct or duodenum, hernia formation, need to convert to open, retained gallstones. Also, I went over with the patient that this may not be the cause of his abdominal pains. Patient understands and wishes to proceed. OPERATIVE NARRATIVE: The patient was brought back to the OR. He was prepped and draped in usual sterile fashion. SCDs placed. Preoperative antibiotics were given and anesthesia by the Anesthesia team. After time-out was performed, an infraumbilical incision was made. This was made down to his fascia. The abdomen was then entered with open Glo technique. The Glo trocar was placed. Insufflation began and pneumoperitoneum was established. Now, three more 5 mm trocars were placed; one in the midepigastric, one in the right upper quadrant, one in the lower right abdomen. The fundus of the gallbladder was elevated. The patient did have some adhesions to the gallbladder. These were taken down with Harmonic scalpel. The infundibulum of the gallbladder was now grasped and critical view was carefully dissected out. Did get a very good critical view of the cystic duct, cystic artery. I did dissect the gallbladder up a slight ways up the liver fossa. The patient did have indocyanine green which again showed good structural details and bolus did show light up of the cystic artery. Now, the cystic duct and cystic artery were clipped and transected. The rest of the gallbladder was removed the rest of the way off the liver with Harmonic scalpel. No other tubular structures were countered. There was good hemostasis. The gallbladder was placed in an EndoCatch bag. I again inspected the surgical site. The clips appeared to be in good position and still functioning. There was good hemostasis. Some light suction-irrigation was done. Now, the 5 mm trocars were removed. Pneumoperitoneum was released. The gallbladder was removed along with the Glo trocar. Now, the Glo trocar entry site was closed with [id number] 0 Vicryl. Rest of the local was injected to all the port sites and they were closed with 4- 0 Monocryl and Dermabond. At the end of the case, sponge and needle counts were correct, and the patient was transferred to recovery room in stable condition. YOVANI MCFARLANE /[id number]
== END 2021-07-06 11:50 | disposition home or self-care (01) ==
LOC: MW.SDS 07:17
PROVIDERS: ATTEND Surgery
DX: K81.1 Chronic cholecystitis (principal); K21.9 Gastro-esophageal reflux disease without esophagitis; Z87.891 Personal history of nicotine dependence; Z79.899 Other long term (current) drug therapy; Z98.890 Other specified postprocedural states
CPT/HCPCS: 47562; 88304; A9270; J0131; J0694; J1100; J1885; J2250; J2704; J3010; J3490; J7120; 00790; J2405

== ENCOUNTER 2021-09-01 11:16 | Emergency (ER) | payer BC ==
--- NOTE | 2021-09-01 11:22 | EDM.PDOC ---
ED HPI GENERAL MEDICAL PROBLEM - General Chief Complaint: General Stated Complaint: SHAKING/ABDOMINAL PAIN Time Seen by Provider: 09/01/21 11:20 Source of Information: Reports: Patient History Limitations: Reports: No Limitations - History of Present Illness INITIAL COMMENTS - FREE TEXT/NARRATIVE: 35-year-old male past medical history irritable bowel syndrome, recent cholecystectomy in June 2021, history of C. difficile infection roughly a year ago presents for abdominal pain, generalized weakness, nausea, shakiness. Patient states symptoms started about 2 days ago. He notes that he always has abnormal bowel movements but has noted some diarrhea. He has felt nauseated but has not had any episodes of emesis. His abdominal pain is generalized but worse in the left upper quadrant abdomen. He denies any fevers, cough, shortness of breath. Denies urinary symptoms. Notes that he has an abnormal feeling of tightness and shakiness in his throat going down into his abdomen. Denies alcohol use. Abdomen Pain Score (Numeric/FACES): 2 - Related Data Allergies Allergy/AdvReac Type Severity Reaction Status Date / Time bounce dryer sheets Allergy Hives Uncoded 09/01/21 11:25 Home Meds: Home Meds Albuterol Sulfate [Albuterol Sulfate HFA] 2 puff INH ASDIRECTED PRN 06/30/21 [History] Baclofen 10 mg PO TID PRN 06/30/21 [History] Pantoprazole Sodium [Protonix] 40 mg PO DAILY 06/30/21 [History] Hydrocodone/Acetaminophen [HYDROcodone-Acetaminophen 5-325 MG] 1 - 2 each PO Q6HR PRN #14 tab 07/06/21 [Rx] Multivit with Minerals/Lutein [Vision Plus Lutein Vitamin] 1 each PO DAILY 07/06/21 [History] Past Medical History HEENT History: Reports: Allergic Rhinitis, Other (See Below) Other HEENT History: chronic sinus congestion Cardiovascular History: Reports: None Respiratory History: Reports: Asthma, Other (See Below) Other Respiratory History: asthma as a child, has prescribed inhaler for cough due to sinus congestion, Gastrointestinal History: Reports: GERD Other Gastrointestinal History: intermittent RUQ pain Genitourinary History: Reports: None Musculoskeletal History: Reports: Back Pain, Chronic, Neck Pain, Chronic, Other (See Below) Other Musculoskeletal History: DDD Neurological History: Reports: None Psychiatric History: Reports: None Endocrine/Metabolic History: Reports: None Hematologic History: Reports: None Immunologic History: Reports: None Oncologic (Cancer) History: Reports: None Dermatologic History: Reports: None - Infectious Disease History Infectious Disease History: Reports: C-Difficile, Chicken Pox - Past Surgical History Head Surgeries/Procedures: Reports: None HEENT Surgical History: Reports: Tonsillectomy Other HEENT Surgeries/Procedures: middle ear surgery Cardiovascular Surgical History: Reports: None Respiratory Surgical History: Reports: None GI Surgical History: Reports: EGD Male Surgical History: Reports: None Endocrine Surgical History: Reports: None Neurological Surgical History: Reports: None Musculoskeletal Surgical History: Reports: None Oncologic Surgical History: Reports: None Dermatological Surgical History: Reports: None Social & Family History - Family History Family Medical History: No Pertinent Family History - Caffeine Use Caffeine Use: Reports: None ED ROS GENERAL - Review of Systems Review Of Systems: Comprehensive ROS is negative, except as noted in HPI. ED EXAM, GENERAL - Physical Exam Exam: See Below Exam Limited By: No Limitations General Appearance: Alert, WD/WN, No Apparent Distress Ears: Hearing Grossly Normal Throat/Mouth: Normal Voice, No Airway Compromise Head: Atraumatic, Normocephalic Respiratory/Chest: No Respiratory Distress, Lungs Clear, Normal Breath Sounds, No Accessory Muscle Use Cardiovascular: Normal Peripheral Pulses, Regular Rate, Rhythm GI/Abdominal: Soft, Non-Tender Extremities: Normal Inspection Neurological: Alert, Normal Cognition, Normal Gait Psychiatric: Normal Affect, Normal Mood, Anxious Skin Exam: Warm, Dry, Intact, Normal Color #1 Interpretation EKG Date: 09/01/21 Time: 11:36 Rhythm: NSR Rate (Beats/Min): 77 [place]: Normal P-Wave: Present QRS: Normal ST-T: Normal QT: Normal PA/PQ Interval: 154 EKG Interpretation Comments: normal EKG Course - Vital Signs Last Recorded V/S: Last Vital Signs Temp 96.6 F L 09/01/21 11:25 Pulse 70 09/01/21 12:10 Resp 18 09/01/21 12:10 BP 117/76 09/01/21 12:10 Pulse Ox 100 09/01/21 12:10 - Orders/Labs/Meds Orders: Active Orders 24 hr Category Date Time Status Saline Lock Insert [OM.PC] Stat Oth 09/01/21 11:31 Ordered Labs: Laboratory Tests 09/01/21 09/01/21 09/01/21 Range/Units 11:35 11:35 11:43 WBC 7.92 (4.0-11.0) K/uL RBC 4.92 (4.50-5.90) M/uL Hgb 15.5 (13.0-17.0) g/dL Hct 43.7 (38.0-50.0) % MCV 88.8 (80.0-98.0) fL MCH 31.5 (27.0-32.0) pg MCHC 35.5 (31.0-37.0) g/dL RDW Std Deviation 42.0 (28.0-62.0) fl RDW Coeff of Bridger 13 (11.0-15.0) % Plt Count 284 (150-400) K/uL MPV 9.90 (7.40-12.00) fL Neut % (Auto) 51.3 (48.0-80.0) % Lymph % (Auto) 34.0 (16.0-40.0) % Hamlin % (Auto) 8.1 (0.0-15.0) % Eos % (Auto) 5.2 (0.0-7.0) % Baso % (Auto) 1.4 (0.0-1.5) % Neut # (Auto) 4.1 (1.4-5.7) K/uL Lymph # (Auto) 2.7 H (0.6-2.4) K/uL [place]lin # (Auto) 0.6 (0.0-0.8) K/uL Eos # (Auto) 0.4 (0.0-0.7) K/uL Baso # (Auto) 0.1 (0.0-0.1) K/uL Nucleated RBC % 0.0 /100WBC Nucleated RBCs # 0 K/uL Sodium 140 (136-148) mmol/L Potassium 3.7 (3.5-5.1) mmol/L Chloride 101 (98-107) mmol/L Carbon Dioxide 30.3 (21.0-32.0) mmol/L BUN 10 (7.0-18.0) mg/dL Creatinine 1.0 (0.8-1.3) mg/dL Est Cr Clr Drug Dosing 100.17 mL/min Estimated GFR (MDRD) > 60.0 ml/min Glucose 121 H (74-106) mg/dL Lactic Acid 1.1 (0.4-2.0) mmol/L Calcium 9.3 (8.5-10.1) mg/dL Total Bilirubin 0.9 (0.2-1.0) mg/dL AST 11 L (15-37) IU/L ALT 21 (14-63) IU/L Alkaline Phosphatase 101 (46-116) U/L Total Protein 8.7 H (6.4-8.2) g/dL Albumin 4.5 (3.4-5.0) g/dL Globulin 4.2 H (2.6-4.0) g/dL Albumin/Globulin Ratio 1.1 (0.9-1.6) Lipase 80 (73-393) U/L SARS-CoV-2 RNA (ELENITA) (NEGATIVE) 09/01/21 Range/Units 11:50 WBC (4.0-11.0) K/uL RBC (4.50-5.90) M/uL Hgb (13.0-17.0) g/dL Hct (38.0-50.0) % MCV (80.0-98.0) fL MCH (27.0-32.0) pg MCHC (31.0-37.0) g/dL RDW Std Deviation (28.0-62.0) fl RDW Coeff of Bridger (11.0-15.0) % Plt Count (150-400) K/uL MPV (7.40-12.00) fL Neut % (Auto) (48.0-80.0) % Lymph % (Auto) (16.0-40.0) % [place]lin % (Auto) (0.0-15.0) % Eos % (Auto) (0.0-7.0) % Baso % (Auto) (0.0-1.5) % Neut # (Auto) (1.4-5.7) K/uL Lymph # (Auto) (0.6-2.4) K/uL Hamlin # (Auto) (0.0-0.8) K/uL Eos # (Auto) (0.0-0.7) K/uL Baso # (Auto) (0.0-0.1) K/uL Nucleated RBC % /100WBC Nucleated RBCs # K/uL Sodium (136-148) mmol/L Potassium (3.5-5.1) mmol/L Chloride (98-107) mmol/L Carbon Dioxide (21.0-32.0) mmol/L BUN (7.0-18.0) mg/dL Creatinine (0.8-1.3) mg/dL Est Cr Clr Drug Dosing mL/min Estimated GFR (MDRD) ml/min Glucose (74-106) mg/dL Lactic Acid (0.4-2.0) mmol/L Calcium (8.5-10.1) mg/dL Total Bilirubin (0.2-1.0) mg/dL AST (15-37) IU/L ALT (14-63) IU/L Alkaline Phosphatase (46-116) U/L Total Protein (6.4-8.2) g/dL Albumin (3.4-5.0) g/dL Globulin (2.6-4.0) g/dL Albumin/Globulin Ratio (0.9-1.6) Lipase (73-393) U/L SARS-CoV-2 RNA (ELENITA) NEGATIVE (NEGATIVE) Meds: Medications Discontinued Medications Generic Name Dose Route Start Last Admin Trade Name Freq PRN Reason Stop Dose Admin Famotidine 20 mg 09/01/21 11:31 09/01/21 11:40 Famotidine 20 Mg/2 Ml Sdv IVPUSH 09/01/21 11:32 20 mg ONETIME ONE Administration Sodium Chloride 1,000 mls @ 999 mls/hr 09/01/21 11:31 09/01/21 11:35 Normal Saline IV 09/01/21 12:31 999 mls/hr .Bolus ONE Administration Ketorolac Tromethamine 15 mg 09/01/21 11:31 09/01/21 11:40 Ketorolac 15 Mg/Ml Sdv IVPUSH 09/01/21 11:32 15 mg STAT STA Administration Ondansetron HCl 4 mg 09/01/21 11:31 09/01/21 11:41 Ondansetron 4 Mg/2 Ml Sdv IVPUSH 09/01/21 11:32 4 mg ONETIME ONE Administration - Re-Assessments/Exams Free Text/Narrative Re-Assessment/Exam: 09/01/21 11:35 Patient is well-appearing with benign abdominal exam. Will get basic labs. Will treat symptomatically with IV fluid bolus, Zofran, Pepcid, Toradol. Will defer CT imaging unless labs are grossly abnormal. Patient states he has had several CT scans which were all normal. 09/01/21 12:32 Patient reports that he is feeling better; pain is improved significantly. He does endorse feelings of dizziness "like the bed is moving". Labs so far are unremarkable; just pending COVID-19 testing which is unlikely I believe. Will f/u result and disposition accordingly. 09/01/21 12:46 COVID-19 is negative. Will discharge patient with a short course of Zofran for symptomatic relief. Recommend follow-up with PMD. Departure - Departure Time of Disposition: 12:47 Disposition: Home, Self-Care 01 Condition: Good Clinical Impression: Abdominal pain Qualifiers: Abdominal location: generalized Qualified Code(s): R10.84 - Generalized abdominal pain - Discharge Information Instructions: Abdominal Pain, Adult Referrals: Ildefonso Haas MD [Primary Care Provider] - Forms: ED Department Discharge Additional Instructions: Your emergency department work-up was largely unremarkable. Your labs are all within normal range. Your Covid test was negative. You did respond well to medications. I sent a prescription for medication called Dominiquenatividad to your pharmacy which she can roll picker tomorrow. This is to be used as needed for nausea. You should follow-up with your primary care physician particularly given the uncertainty of today's symptoms. If symptoms worsen you should come back to the emergency department. The following information is given to patients seen in the emergency department who are being discharged to home. This information is to outline your options for follow-up care. We provide all patients seen in our emergency department with a follow-up referral. The need for follow-up, as well as the timing and circumstances, are variable depending upon the specifics of your emergency department visit. If you don't have a primary care physician on staff, we will provide you with a referral. We always advise you to contact your personal physician following an emergency department visit to inform them of the circumstance of the visit and for follow-up with them and/or the need for any referrals to a consulting specialist. The emergency department will also refer you to a specialist when appropriate. This referral assures that you have the opportunity for follow-up care with a specialist. All of these measure are taken in an effort to provide you with optimal care, which includes your follow-up. Under all circumstances we always encourage you to contact your private physician who remains a resource for coordinating your care. When calling for follow-up care, please make the office aware that this follow-up is from your recent emergency room visit. If for any reason you are refused follow-up, please contact the [facility] Emergency Department at and asked to speak to the emergency department charge nurse. Please follow up with your primary care physician. If you do not have a primary care physician, see below: [facility] [address], [place] [address] [facility] [address] [place] [address] [facility] [address] [place] [address] Sepsis Event Note (ED) - Focused Exam Vital Signs: Vital Signs Temp Pulse Resp BP Pulse Ox 09/01/21 12:10 70 18 117/76 100 09/01/21 11:25 96.6 F L 93 18 156/90 H 96 - My Orders Last 24 Hours: My Active Orders 09/01/21 11:31 Saline Lock Insert [OM.PC] Stat - Assessment/Plan Last 24 Hours: My Active Orders 09/01/21 11:31 Saline Lock Insert [OM.PC] Stat
[2021-09-01] MEDS ORDERED: Famotidine 20 MG/2 ML SDV IVPUSH ONE (11:31)
[2021-09-01] MEDS ORDERED: Ketorolac 15 MG/ML SDV IVPUSH STA (11:31)
[2021-09-01] MEDS ORDERED: Sodium Chloride 0.9% 1,000 ML IV ONE (11:31)
[2021-09-01] MEDS ORDERED: Ondansetron 4 MG/2 ML SDV IVPUSH ONE (11:31)
[2021-09-01 11:54] LABS: BLOOD UREA NITROGEN,BUN 10 mg/dL (7.0-18.0); CARBON DIOXIDE,CO2 30.3 mmol/L (21.0-32.0); CHLORIDE,CL 101 mmol/L (98-107); GLUCOSE RANDOM 121 mg/dL (74-106); LIPASE 80 U/L (73-393); POTASSIUM,K 3.7 mmol/L (3.5-5.1); SODIUM,NA 140 mmol/L (136-148)
[2021-09-01 12:24] VITALS: BP 117/76
[2021-09-01 12:28] VITALS: PULSE 70
== END 2021-09-01 12:56 | disposition home or self-care (01) ==
LOC: MW.ED 11:16
DX: R10.84 Generalized abdominal pain (principal); K21.9 Gastro-esophageal reflux disease without esophagitis; Z91.048 Other nonmedicinal substance allergy status; Z90.49 Acquired absence of other specified parts of digestive tract; Z79.899 Other long term (current) drug therapy; Z20.822 Contact with and (suspected) exposure to COVID-19
CPT/HCPCS: 36415; 80053; 83605; 83690; 85025; 87635; 93005; 96374; 96375; 99284; J1885; J2405; J3490; J7030; U0002